=== PATIENT | female | born 1955 | race Caucasian/White ===

== ENCOUNTER 2017-04-08 08:28 | Day surgery (SDC) | payer OTHER ==
[2017-04-04 15:18] VITALS: BMI 37.7
[~2017-04-08 08:28] MED LIST: LACTATED RINGERS 1,000 ML IV SCH
[2017-04-08 08:53] VITALS: TEMP 98.6
[2017-04-08 08:57] LABS: Glucose,Whole Blood 106 mg/dL (75-99)
[2017-04-08] MEDS ORDERED: LIDOCAINE 1% INJ 10MG/ML (20 ML MDV) ONE (09:01)
[2017-04-08] MEDS ORDERED: PROPOFOL 10 MG/ML 20 ML VIAL IV ONE (09:01)
--- NOTE | 2017-04-08 09:13 | P.GSHP ---
History of Present Illness H&P Date: 04/08/17 Chief Complaint: Anemia, GI bleed This a 8-year-old female who's had issues with anemia and GI bleed. She presents today for colonoscopy. Past Medical History Past Medical History: Hypertension Additional Past Medical History / Comment(s): states low HGB History of Any Multi-Drug Resistant Organisms: None Reported Past Surgical History: Bariatric Surgery, Section, Hernia Repair, Hysterectomy, Orthopedic Surgery Additional Past Surgical History / Comment(s): ROU-N-Y, RT CARPAL TUNNEL, PANNICULECTOMY Past Anesthesia/Blood Transfusion Reactions: Postoperative Nausea & Vomiting ( PONV) Smoking Status: Never smoker - Past Family History Daughter(s) Family Medical History: Deep Vein Thrombosis (DVT) Additional Family Medical History / Comment(s): R/T CONTROL PILL Medications and Allergies Home Medications Medication Instructions Recorded Confirmed Type Diclofenac 1 tab PO BID 04/04/17 04/08/17 History Ergocalciferol [Vitamin D2] 50,000 unit PO FR 04/04/17 04/08/17 History Ferocon 1 tab PO QAM 04/04/17 04/08/17 History Lisinopril [Zestril] 10 mg PO DAILY 04/04/17 04/08/17 History Vitamin B Complex 1 each PO DAILY 04/04/17 04/08/17 History buPROPion XL [Wellbutrin XL] 150 mg PO BID 04/04/17 04/08/17 History Primidone [Mysoline] 25 mg PO DAILY PRN 04/08/17 04/08/17 History metFORMIN HCL [Glucophage Xr] 500 mg PO DAILY 04/08/17 04/08/17 History Allergies Allergy/AdvReac Type Severity Reaction Status Date / Time No Known Allergies Allergy Verified 04/08/17 08:43 Surgical - Exam Vital Signs Temp Pulse Resp BP Pulse Ox 98.6 F 82 16 124/78 94 L 04/08/17 08:51 04/08/17 08:51 04/08/17 08:51 04/08/17 08:51 04/08/17 08:51 - General well developed, no distress - Eyes PERRL - ENT normal pinna - Neck no masses - Respiratory normal expansion - Cardiovascular Rhythm: regular - Abdomen Abdomen: soft, non tender Results - Labs Abnormal Lab Results - Last 24 Hours (Table) 04/08/17 Range/Units 08:50 POC Glucose (mg/dL) 106 H (75-99) mg/dL Assessment and Plan Plan: GI bleed, anemia. We'll perform colonoscopy.
--- NOTE | 2017-04-08 09:30 | P.OP ---
Date of Procedure: 04/08/17 Preoperative Diagnosis: GI bleed Anemia Postoperative Diagnosis: Mild internal and external hemorrhoids Procedure(s) Performed: Colonoscopy Implants: Anesthesia: MAC Surgeon: Jonny Guevara Pathology: none sent Condition: stable Disposition: PACU Indications for Procedure: Operative Findings: Description of Procedure: Patient's placed on the endoscopy table in the lateral position. She received IV sedation. Digital rectal exam was performed which revealed internal and external hemorrhoids. Flexible colonoscope was then placed patient anus passed throughout the entire colon. Ileocecal valve was visualized. The cecum, ascending and transverse colon appeared normal. The descending and sigmoid colon appeared normal. The scope was then brought back into the rectum this appeared normal. Scope was withdrawn through the anus and internal and external hemorrhoids were noted. Scope was withdrawn for patient.
[2017-04-08 10:05] VITALS: BP 153/89; PULSE 71; RESP 16
== END 2017-04-08 10:09 | disposition home or self-care (01) ==
LOC: ORWHC2ENDO 08:28
PROVIDERS: ATTEND Surgery
DX: K64.8 Other hemorrhoids (principal); K64.4 Residual hemorrhoidal skin tags; K92.2 Gastrointestinal hemorrhage, unspecified; D64.9 Anemia, unspecified; I10 Essential (primary) hypertension; Z98.84 Bariatric surgery status; G25.0 Essential tremor; Z79.1 Long term (current) use of non-steroidal anti-inflammatories (NSAID); Z79.899 Other long term (current) drug therapy; Z88.8 Allergy status to other drugs, medicaments and biological substances
CPT/HCPCS: 45378; J2001; J2704

== ENCOUNTER → 2017-12-31 | Outpatient (CLI) | payer OTHER ==
--- NOTE | 2018-01-20 14:04 | MM ---
Reason for exam: screening (asymptomatic). Last mammogram was performed 4 years and 6 months ago. History: Reductions of both breasts, 2006. Physical Findings: A clinical breast exam by your physician is recommended on an annual basis and results should be correlated with mammographic findings. MG Screening Mammo w CAD Bilateral CC and MLO view(s) were taken. Prior study comparison: June 21, 2013, mammogram, performed at [facility]. May 10, 2011, mammogram, performed at [facility]. There are scattered fibroglandular densities. Benign appearing bilateral calcifications. No suspicious abnormality. No significant changes when compared with prior studies. ASSESSMENT: Benign, BI-RAD 2 RECOMMENDATION: Routine screening mammogram of both breasts in 1 year.
== END | disposition home or self-care (01) ==
LOC: RADMAMWWP 07:56
PROVIDERS: ATTEND Family Medicine
DX: Z12.31 Encounter for screening mammogram for malignant neoplasm of breast (principal)
CPT/HCPCS: 77067

== ENCOUNTER 2019-07-01 08:22 | Emergency (ER) | payer OTHER, BC ==
[2019-07-01 08:35] VITALS: TEMP 97.8
[2019-07-01] MEDS ORDERED: SODIUM CHLORIDE 0.9% 1,000 ML IV STA (09:25)
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
[2019-07-01 10:17] LABS: Basophils # (A) 0.2 k/uL (0-0.2); Basophils % (A) 2 %; Eosinophils # (A) 0.1 k/uL (0-0.7); Eosinophils % (A) 1 %; HGB 13.5 gm/dL (11.4-16.0); Lymphocytes # (A) 0.8 k/uL (1.0-4.8); Lymphocytes % (A) 7 %; MCH 28.5 pg (25.0-35.0); MCHC 32.1 g/dL (31.0-37.0); MCV 88.8 fL (80.0-100.0); Monocytes # (A) 0.5 k/uL (0-1.0); Monocytes % (A) 5 %; Neutrophils # (A) 9.1 k/uL (1.3-7.7); Neutrophils % (A) 84 %; Platelet Count 371 k/uL (150-450); RBC 4.73 m/uL (3.80-5.40); RDW 13.1 % (11.5-15.5); WBC 10.8 k/uL (3.8-10.6)
[2019-07-01 10:25] LABS: INR 0.9 (<1.2); Partial Thromboplastin Time 22.8 sec (22.0-30.0); Prothrombin Time 10.2 sec (9.0-12.0)
[2019-07-01 10:38] LABS: ALT 32 U/L (9-52); AST 33 U/L (14-36); African American GFR (CKD) >90 (>60 ml/min/1.73 sqM); Albumin 4.3 g/dL (3.5-5.0); Alcohol <10 mg/dL; Alkaline Phosphatase 91 U/L (38-126); Anion Gap 10 mmol/L; Blood Urea Nitrogen 15 mg/dL (7-17); Calcium 9.7 mg/dL (8.4-10.2); Carbon Dioxide 25 mmol/L (22-30); Chloride 106 mmol/L (98-107); Creatine Kinase 45 U/L (30-135); Glucose 175 mg/dL (74-99); Potassium 4.6 mmol/L (3.5-5.1); Sodium 141 mmol/L (137-145); Total Bilirubin 0.5 mg/dL (0.2-1.3); Total Protein 7.3 g/dL (6.3-8.2)
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
--- NOTE | 2019-07-01 11:00 | XR ---
EXAMINATION TYPE: XR wrist complete RT DATE OF EXAM: 07/01/2019 CLINICAL HISTORY: Trauma injury with pain. TECHNIQUE: Frontal, lateral and oblique images of the right hand and wrist are obtained. Additional fourth scaphoid view right wrist. COMPARISON: None FINDINGS: Seen best on oblique and scaphoid projection there is acute nondisplaced intra-articular fr acture through distal radial metaphysis radial aspect. The distal ulna intact. Mild narrowing and spu rring base of first metacarpal. Overlying soft tissue unremarkable. Images of right hand show no additional acute fracture or dislocation. Joint spaces show mild to mode rate narrowing throughout the phalanges with relative sparing of the MCP joints. Overlying soft tissu e is unremarkable. IMPRESSION: There is acute nondisplaced oblique intra-articular fracture radial aspect distal radial epiphysis. (Initial encounter closed type posttraumatic fracture)
--- NOTE | 2019-07-01 11:01 | XR ---
EXAMINATION TYPE: XR hand complete RT DATE OF EXAM: 07/01/2019 CLINICAL HISTORY: Right pain after trauma TECHNIQUE: Frontal, lateral and oblique images of the right hand are obtained. COMPARISON: None. FINDINGS: There is a nondisplaced intra-articular transverse fracture of the radial styloid. This vanna ears noncomminuted. There is overlying soft tissue swelling. Cystic change of the scaphoid is likely degenerative. Mild degenerative changes of the first carpometacarpal joint and distal interphalangeal joints with slight narrowing of the radiocarpal joints. Carpal carpal interspaces are maintained. Sl ight negative ulnar variance noted. Old fracture deformity of the middle fifth phalanx. IMPRESSION: Acute nondisplaced intra-articular transversely oriented radial styloid fracture of the r ight wrist.
--- NOTE | 2019-07-01 11:05 | XR ---
Bilateral knees HISTORY: Trauma and pain 3 views of each knee submitted on total of 6 images Bone mineralization is reduced which could limit sensitivity. Osteoarthritic changes with marginal sp urring are present within the knees, joint space loss is significantly reduced at the patellofemoral joints. Alignment is maintained. Soft tissue swelling is present. Suprapatellar joint effusions are s uspected. Atherosclerotic vascular calcifications are present. Possible loose bodies present within t he joints. IMPRESSION: No fracture or dislocation is evident. Osteoarthritis, joint effusions, soft tissue swell ing.
[2019-07-01 11:30] VITALS: RESP 18
[2019-07-01] MEDS ORDERED: KETOROLAC 30 MG/ML 1 ML VIAL IVP STA (13:00)
[2019-07-01 13:19] VITALS: BP 134/81; PULSE 91
== END 2019-07-01 13:30 | disposition home or self-care (01) ==
LOC: EC 08:22
DX: S52.571A Other intraarticular fracture of lower end of right radius, initial encounter for closed fracture (principal); S80.02XA Contusion of left knee, initial encounter; S80.01XA Contusion of right knee, initial encounter; I10 Essential (primary) hypertension; F32.9 Major depressive disorder, single episode, unspecified; Z79.899 Other long term (current) drug therapy; Z79.891 Long term (current) use of opiate analgesic; Z98.84 Bariatric surgery status; Z98.890 Other specified postprocedural states; V57.5XXA Driver of pick-up truck or van injured in collision with fixed or stationary object in traffic accident, initial encounter; Y92.410 Unspecified street and highway as the place of occurrence of the external cause; Y93.89 Activity, other specified; Y99.0 Civilian activity done for income or pay
CPT/HCPCS: 36415; 93005; 86900; 86901; 80053; 82550; 84484; 85025; 85610; 85730; 86850; 80320; 73562; 73110; 73130; 71260; 74177; 29125; 99284; 96374; 96361 ×3; J1885; Q9967

== ENCOUNTER → 2019-08-14 | Outpatient (CLI) | payer BC, OTHER ==
--- NOTE | 2019-08-14 13:43 | MR ---
EXAMINATION TYPE: MR shoulder RT wo con DATE OF EXAM: 08/14/2019 1:07 PM COMPARISON: NONE HISTORY: Rt shoulder pain TECHNIQUE: Multiplanar, multisequence imaging of the right shoulder is performed without contrast. FINDINGS: The study is marred by motion artifact. There is no evidence of an os acromiale. There is only mild hypertrophic change within the right AC j oint. There is a complete tear of the supraspinatus tendon with muscular retraction to the level of the mid midportion of the head of the humerus. The interspace tendon is also attenuated but not completely t orn. The glenoid labrum appears intact. The biceps tendon is normally situated within the biceps tendon groove and inserts normally upon the biceps tendon. IMPRESSION: 1. LIMITED EXAMINATION DUE TO SIGNIFICANT MOTION ARTIFACT. 2. COMPLETE TEAR OF THE SUPRASPINATUS TENDON WITH MUSCULAR RETRACTION TO THE LEVEL OF THE MIDPORTION OF THE HEAD OF THE HUMERUS. 3. COMPLETE TEAR OF THE SUPRASPINATUS TENDON.
--- NOTE | 2019-08-14 14:34 | MR ---
EXAMINATION TYPE: MR cervical spine wo con DATE OF EXAM: 08/14/2019 COMPARISON: None HISTORY: Radiculopathy TECHNIQUE: Multiplanar, multisequence images of the cervical spine were acquired. C2-C3: No evidence for degenerative disc disease. No disc bulge/herniation or protrusion. No Canal stenosis. Foramina are patent bilaterally. C3-C4: No evidence for degenerative disc disease. No disc bulge/herniation or protrusion. No Canal stenosis. Foramina are patent bilaterally. C4-C5: Minimal posterior disc bulge is present, no significant spinal stenosis or foraminal encroachm ent. C5-C6: Small posterior disc bulge is present possibly contacting the anterior cervical cord. No signi ficant central stenosis or foraminal encroachment. C6-C7: Small central posterior disc protrusion, no significant foraminal encroachment or central sten osis. C7-T1: No evidence for degenerative disc disease. No disc bulge/herniation or protrusion. No Canal stenosis. Foramina are patent bilaterally. Cervical segments are intact. There is normal alignment. Cervical spinal cord is of normal signal. Craniovertebral junction relationships are within normal limits. Some mild loss of disc height prese nt C4-5, C5-6. Mild spondylosis is noted. IMPRESSION: Mild degenerative disc disease.
== END | disposition home or self-care (01) ==
LOC: RADMRIMAIN 10:19
PROVIDERS: ATTEND Family Medicine
DX: M50.10 Cervical disc disorder with radiculopathy, unspecified cervical region (principal); M75.121 Complete rotator cuff tear or rupture of right shoulder, not specified as traumatic; S40.011A Contusion of right shoulder, initial encounter
CPT/HCPCS: 72141

== ENCOUNTER 2019-10-21 06:04 | Day surgery (SDC) | payer BC ==
[2019-10-19 16:00] VITALS: BMI 35.5
--- NOTE | 2019-10-20 14:28 | HP ---
HISTORY AND PHYSICAL DATE OF SURGERY: 10/21/2019 Machelle Serrano is a 64-year-old patient seen with progressive right shoulder pain. We discussed options for treatment. She elected to proceed with right shoulder arthroscopy. Consent regarding the procedure was obtained. PAST MEDICAL HISTORY: Hypertension, essential tremors. PAST SURGICAL HISTORY: Carpal tunnel release. DAILY MEDICATIONS: Lisinopril, Tegretol, Wellbutrin. ALLERGIES: None. SOCIAL HISTORY: She denies tobacco use. PHYSICAL EVALUATION OF THE RIGHT SHOULDER: Flexion is 140 degrees, abduction is 130 degrees, external rotation is 15 degrees with pain and weakness. There is tenderness along the anterior lateral acromion and rotator cuff insertion site. Impingement sign is positive at 90 degrees. Drop-arm sign positive. Distal neurovascular exam intact. RADIOGRAPHS OF THE RIGHT SHOULDER: Revealed a type 2 anterior acromion, evidence for acromioclavicular joint osteoarthritis. Right shoulder MRI revealed a retracted rotator cuff tendon tear. IMPRESSION: 1. Right shoulder impingement with retracted rotator cuff tendon tear. 2. Right shoulder acromioclavicular joint osteoarthritis. 3. Hypertension. PLAN: Right shoulder arthroscopy with subacromial decompression, arthroscopic rotator cuff repair, arthroscopic Damián procedure and debridement. MMODL / IJN: [id number] /
[~2019-10-21 06:04] MED LIST changes: +DEXAMETHASONE SOD PHOSPHATE 10 MG/ML 1 ML VIAL IV ONE; +HYDROmorphone 0.5 MG/0.5 ML SYRINGE IVP PRN; +LIDOCAINE 1% 20 ML VIAL (10MG/ML) FOR IV START INTRADERMA PRN; +MIDAZOLAM 2 MG/2 ML VIAL IV PRN; +ONDANSETRON 4 MG/2 ML VIAL IVP ONE; +fentaNYL (PF) 50 MCG/ML 2 ML AMP IVP PRN
[2019-10-21 06:35] LABS: Glucose,Whole Blood 118 mg/dL (75-99)
[2019-10-21] MEDS ORDERED: DEXAMETHASONE SOD PHOSPHATE 4 MG/ML 1 ML VIAL ONE (07:21)
[2019-10-21] MEDS ORDERED: LIDOCAINE 1% INJ 10MG/ML (20 ML MDV) ONE (07:21)
[2019-10-21] MEDS ORDERED: KETOROLAC 30 MG/ML 1 ML VIAL ONE (07:21)
[2019-10-21] MEDS ORDERED: ROPIVACAINE 5 MG/ML 30 ML VIAL ONE (07:21)
[2019-10-21] MEDS ORDERED: fentaNYL (PF) 50 MCG/ML 2 ML AMP ONE (07:21)
[2019-10-21] MEDS ORDERED: MIDAZOLAM 2 MG/2 ML VIAL ONE (07:21)
[2019-10-21] MEDS ORDERED: SUCCINYLCHOLINE CHLORIDE 100 MG/5 ML SYR IV ONE (07:21)
[2019-10-21] MEDS ORDERED: PROPOFOL 10 MG/ML 20 ML VIAL IV ONE (07:21)
[2019-10-21] MEDS ORDERED: LACTATED RINGERS 1,000 ML IV ONE (09:00)
[2019-10-21 09:16] VITALS: TEMP 96.8
--- NOTE | 2019-10-21 09:23 | P.OP ---
Date of Procedure: 10/21/19 Preoperative Diagnosis: Right shoulder impingement Postoperative Diagnosis: 1. Right shoulder rotator cuff tear 2. Right shoulder impingement 3. Right shoulder acromioclavicular joint osteoarthritis 4. Right shoulder partial long head biceps tendon tear 5. Right shoulder superficial labral tear Procedure(s) Performed: 1. Right shoulder arthroscopic rotator cuff repair 2. Right shoulder arthroscopic subacromial decompression 3. Right shoulder arthroscopic Damián procedure 4. Right shoulder arthroscopic biceps tenotomy 5. Right shoulder arthroscopic debridement labral tear Implants: 5Arthrex swivel lock anchors Anesthesia: GETA, regional (Interscalene block) Surgeon: Zhen Watt Bottom Steep Tender #1: Corey Chisholm Estimated Blood Loss (ml): 7 Pathology: none sent Condition: stable Disposition: PACU Indications for Procedure: 64-year-old patient seen with progressive right shoulder pain. After treatment options were discussed with her, she elected to proceed with arthroscopy. Operative Findings: see description of procedure Description of Procedure: Patient underwent an interscalene block by department of anesthesia. The patient was then taken to the operative suite. The patient underwent a general anesthetic by the department of anesthesia. The patient was placed into a lateral position and secured. There was appropriate padding of the bony prominence. Right shoulder was then prepped and draped in normal sterile orthopedic fashion. We placed the extremity in 10 pounds of longitudinal traction. A posterior incision was now made for a posterior working portal site. The trocar and cannula were inserted into the glenohumeral joint. Arthroscopy was initiated. Spinal needle was now inserted anteriorly, to ascertain the anterior working portal site. An incision was now made in that area, a trocar was inserted followed by a probe. There was superficial tearing of the anterior labrum. There was an obvious rotator cuff tear clearly visualized from the glenohumeral side. There was some hyperemia and partial tearing long head biceps tendon. I performed an arthroscopic biceps tenotomy. I debrided the superficial labral tear down to stable tissue. The residual labrum was again probed and found to be stable. Instruments were now removed from glenohumeral joint. Utilizing the posterior working portal site, the trocar and cannula were inserted into the subacromial space. Arthroscopy initiated. I made an incision 2 fingerbreadths lateral to the acromion. I introduced my trocar followed by my ArthroCare ablator. I now began ablating thick subacromial bursal tissue, which exposed the undersurface of the anterior acromion. There was diminished subacromial space. There was a very prominent anterior acromion. A motorized bur was introduced and a subacromial decompression was performed. I also excised some osteophytes off the inferior aspect of the distal clavicle. The AC joint was visualized and noted to be fairly arthritic. The motorized bur was introduced in the anterior portal site and a Damián procedure was performed without difficulty, decompressing the AC joint nicely. I turned my attention to the rotator cuff. There was a 2.53 cm rotator cuff tear. I debrided the margins getting down to stable tendon tissue. I introduced my motorized bur and abraded the footprint area, getting some petechial bleeding. I now made an accessory portal site off the lateral aspect of the acromion. I punched 2 holes medial for medial row fixation with the assistance of Johnny BASILIO carefully tapping the punch with a mallet as I held the punch and the camera. I now introduced both anchors into the pre-punched holes and Johnny BASILIO tapped them with the mallet as I held anchors and the camera. Johnny BASILIO now screwed the anchors in place a while I held the anchor guide and camera. All 8 limbs of suture were now passed through good bites of rotator cuff tendon. I now punched 2 holes for lateral row fixation again I held the punch and camera while Johnny BASILIO used a mallet to tap in the punch. We now passed sutures through both anchors and individually I introduced the anchors into the pre-pu nch holes I held the anchor guide in position with one hand holding the camera with the other hand while Johnny BASILIO tensioned the sutures and screwed in the anchors one at a time. All residual suture limbs were now clipped. I noted a residual central dog ear. I now passed 2 suture lengths and then deployed one additional anchor centrally which compressed that residual central dog ear. The repair was probed and found to be stable. We had good compression of the tendon along the entire footprint. I injected 1 mL Renyte intra-articular. Instruments now removed from the portal sites. All portal sites were approximated with nylon suture. Sterile dressings were applied followed by a shoulder immobilizer. Corey BASILIO assisted in this complex case. The patient was awakened, transferred to a bed, and taken to recovery in stable condition.
[2019-10-21 11:16] VITALS: BP 121/82; PULSE 92; RESP 18
--- NOTE | 2019-10-21 21:21 | P.ANPRN ---
Procedure Note - Anesthesia - Nerve Block Performed Right Interscalene Single Time Out Performed: Yes Date of Procedure: 10/21/19 Procedure Start Time: 06:54 Procedure Stop Time: 07:00 Indication: Acute Post-Operative Pain, Requested by Surgeon Sedation Type: Sedate with meaningful contact maintained Preparation: Sterile Prep Position: Supine Needle Types: Pajunk Needle Gauge: 21 Ultrasound used to visualize needle placement: Yes Ultrasound used to observe medication spread: Yes Blood Aspirated: No Pain Paresthesia on Injection Noted: No Resistance on Injection: Normal Image Stored and Saved: Yes Events: Uneventful and Well Tolerated (ropi .5% 30cc plus dexamethasone 4mg)
== END 2019-10-21 11:55 | disposition home or self-care (01) ==
LOC: OR 06:04
PROVIDERS: ATTEND Orthopaedic Surgery
DX: M75.101 Unspecified rotator cuff tear or rupture of right shoulder, not specified as traumatic (principal); M75.41 Impingement syndrome of right shoulder; M19.011 Primary osteoarthritis, right shoulder; S46.111A Strain of muscle, fascia and tendon of long head of biceps, right arm, initial encounter; S43.431A Superior glenoid labrum lesion of right shoulder, initial encounter; X58.XXXA Exposure to other specified factors, initial encounter; M25.711 Osteophyte, right shoulder; I10 Essential (primary) hypertension; G25.0 Essential tremor; Z98.84 Bariatric surgery status; Z79.899 Other long term (current) drug therapy; Z79.84 Long term (current) use of oral hypoglycemic drugs
CPT/HCPCS: 64415; 76942; 29826; 29827; 29824; C1713 ×4; Q4212; J2250; J1100 ×2; J0690; J2405; J2001; J3010; J1885; J2795; J0330; J2704

== ENCOUNTER 2020-03-20 08:29 | Day surgery (SDC) | payer BC ==
[2020-03-17 08:19] VITALS: BMI 35.6
--- NOTE | 2020-03-19 11:27 | HP ---
HISTORY AND PHYSICAL DATE OF SURGERY: 03/20/2020 HISTORY OF PRESENT ILLNESS: Machelle Serrano is a 65-year-old patient seen with right shoulder adhesive capsulitis. We discussed options. She elected to proceed with manipulation under anesthesia, right shoulder with steroid injection. Consent was obtained. PAST MEDICAL HISTORY: Depression, hypertension. PAST SURGICAL HISTORY: Right shoulder arthroscopy, carpal tunnel release. DAILY MEDICATIONS: Lisinopril, Tegretol, Wellbutrin, Zoloft. ALLERGIES: None. SOCIAL HISTORY: She denies tobacco use. PHYSICAL EXAMINATION: Evaluation of the right shoulder, previous arthroscopic portal sites are well healed. Flexion 80 degrees, abduction 70 degrees. External rotation 20 degrees with some weakness. Distal neurovascular exam is intact. RADIOGRAPHS: Right shoulder revealed a stable conversion to a type 1 anterior acromion. IMPRESSION: 1. Right shoulder adhesive capsulitis. 2. History of right shoulder arthroscopy. 3. Hypertension. 4. Depression. PLAN: Manipulation under anesthesia, right shoulder with steroid injection. MMODL / IJN: [id number] /
[~2020-03-20 08:29] MED LIST changes: -DEXAMETHASONE SOD PHOSPHATE 10 MG/ML 1 ML VIAL IV ONE; +LIDOCAINE 1% (10MG/ML) FOR IV START INTRADERMA PRN; -LIDOCAINE 1% 20 ML VIAL (10MG/ML) FOR IV START INTRADERMA PRN; -MIDAZOLAM 2 MG/2 ML VIAL IV PRN; -ONDANSETRON 4 MG/2 ML VIAL IVP ONE; +Pre Op ABX Message 1 EACH MISC MISCELLANE ONE; -fentaNYL (PF) 50 MCG/ML 2 ML AMP IVP PRN
[2020-03-20 09:08] VITALS: TEMP 98
[2020-03-20] MEDS ORDERED: ONDANSETRON 4 MG/2 ML VIAL ONE (09:21)
[2020-03-20 09:34] LABS: Glucose,Whole Blood 96 mg/dL (75-99)
[2020-03-20] MEDS ORDERED: MIDAZOLAM 2 MG/2 ML VIAL IV ONE (09:34)
[2020-03-20] MEDS ORDERED: ONDANSETRON 4 MG/2 ML VIAL IVP ONE (09:40)
[2020-03-20] MEDS ORDERED: PROPOFOL 10 MG/ML 20 ML VIAL IV ONE (09:52)
[2020-03-20] MEDS ORDERED: BUPIVACAINE (PF) 0.25% 30 ML VIAL INTRAARTIC ONE (10:00)
[2020-03-20] MEDS ORDERED: methylPREDNISolone ACETATE 80 MG/ML 1 ML VIAL INTRABURSA ONE (10:00)
--- NOTE | 2020-03-20 10:00 | P.ANPRN ---
Procedure Note - Anesthesia - Nerve Block Performed Right Interscalene Single Time Out Performed: Yes Date of Procedure: 03/20/20 Procedure Start Time: 08:54 Procedure Stop Time: 09:01 Location of Patient: PreOp Indication: Acute Post-Operative Pain, Requested by Surgeon Specifically requested for management of pain by DrGissel: Zhen Watt Sedation Type: Sedate with meaningful contact maintained Preparation: Sterile Prep, Sterile Dressing Position: Sitting Catheter: None Needle Types: On-Q Needle Gauge: 21 Ultrasound used to visualize needle placement: Yes Ultrasound used to observe medication spread: Yes Injectate: 0.5% Ropivacaine (see comment for volume) (20 ml + decadron 4 mg) Blood Aspirated: No Pain Paresthesia on Injection Noted: No Resistance on Injection: Normal Image Stored and Saved: Yes Events: Uneventful and Well Tolerated
--- NOTE | 2020-03-20 10:07 | P.OP ---
Date of Procedure: 03/20/20 Preoperative Diagnosis: Right shoulder adhesive capsulitis Postoperative Diagnosis: Right shoulder adhesive capsulitis Procedure(s) Performed: Manipulation under anesthesia right shoulder with steroid injection Anesthesia: MAC, regional (Interscalene block) Surgeon: Zhen Watt Estimated Blood Loss (ml): 0 Pathology: none sent Condition: stable Disposition: PACU Indications for Procedure: 65-year-old patient seen with right shoulder adhesive capsulitis. After we had treatment options discussed, she elected to proceed with manipulation under anesthesia with steroid injection. Operative Findings: See description of procedure Description of Procedure: Patient was taken to a monitored anesthesia area after having undergone a interscalene block by the department of anesthesia for postoperative pain management. The patient underwent IV sedation by the department of anesthesia. Once sufficient anesthesia was noted a manipulation of the right shoulder was performed achieving near full range of motion with audible tearing of the adhesions. The anterior aspect of the right shoulder was now prepped and draped in the normal sterile orthopedic fashion and a solution of 1 mL Depo-Medrol and 3 mL quarter percent plain Marcaine were injected into the glenohumeral joint. A sterile Band-Aid was applied. The patient was now awakened having tolerated the procedure well.
[2020-03-20 10:23] LABS: Glucose,Whole Blood 95 mg/dL (75-99)
[2020-03-20 10:46] VITALS: RESP 16
[2020-03-20 11:15] VITALS: BP 123/73; PULSE 77
== END 2020-03-20 11:25 | disposition home or self-care (01) ==
LOC: OR 08:29
PROVIDERS: ATTEND Orthopaedic Surgery
DX: M75.01 Adhesive capsulitis of right shoulder (principal); I10 Essential (primary) hypertension; E11.9 Type 2 diabetes mellitus without complications; F32.9 Major depressive disorder, single episode, unspecified; Z79.84 Long term (current) use of oral hypoglycemic drugs; Z79.899 Other long term (current) drug therapy; Z98.890 Other specified postprocedural states
CPT/HCPCS: 23700; 64415; 76942; J2250; J1040; J2405; J2704

== ENCOUNTER → 2021-12-04 | Outpatient (CLI) | payer OTHER ==
--- NOTE | 2021-12-05 11:00 | MM ---
Reason for exam: screening (asymptomatic). Last mammogram was performed 3 years and 11 months ago. History: Reductions of both breasts, 2006. Physical Findings: A clinical breast exam by your physician is recommended on an annual basis and results should be correlated with mammographic findings. MG Screening Mammo w CAD Bilateral CC, MLO, and XCCL view(s) were taken. Prior study comparison: December 31, 2017, bilateral MG screening mammo w CAD. There are scattered fibroglandular densities. Benign vascular calcifications. Grouped heterogeneous microcalcifications posterior central left breast were present previously but may be slightly increased. ASSESSMENT: Incomplete: need additional imaging evaluation, BI-RAD 0 RECOMMENDATION: Special view mammogram of the left breast. (magnification) [facility] will attempt to contact patient to return for supplemental views.
== END | disposition home or self-care (01) ==
LOC: RADMAMWWP 07:01
PROVIDERS: ATTEND Family Medicine
DX: Z12.31 Encounter for screening mammogram for malignant neoplasm of breast (principal)
CPT/HCPCS: 77067

== ENCOUNTER → 2021-12-07 | Outpatient (CLI) | payer OTHER ==
--- NOTE | 2021-12-07 08:43 | MM ---
Reason for exam: additional evaluation requested from abnormal screening. Last mammogram was performed less than 1 month ago. History: Reductions of both breasts, 2006. Physical Findings: A clinical breast exam by your physician is recommended on an annual basis and results should be correlated with mammographic findings. MG Work Up Mamm w CAD LT CC with magnification and ML view(s) were taken of the left breast. Prior study comparison: December 04, 2021, bilateral MG screening mammo w CAD. December 31, 2017, bilateral MG screening mammo w CAD. There are scattered fibroglandular densities. Finding: There are grouped/clustered, coarse calcifications in the lower outer quadrant, posterior position of the left breast, suspect fat necrosis, stable from 2018, prior reduction. Results were given to the patient verbally at the time of the exam. ASSESSMENT: Benign, BI-RAD 2 RECOMMENDATION: Return to routine screening mammogram schedule for both breasts.
== END | disposition home or self-care (01) ==
LOC: RADMAMWWP 06:55
PROVIDERS: ATTEND Family Medicine
DX: R92.8 Other abnormal and inconclusive findings on diagnostic imaging of breast (principal)
CPT/HCPCS: 77065

== ENCOUNTER → 2022-02-20 | Outpatient (CLI) | payer OTHER ==
--- NOTE | 2022-02-21 12:34 | NM ---
EXAMINATION TYPE: NM bone scan whole body DATE OF EXAM: 02/20/2022 COMPARISON: NONE HISTORY: Pain Delayed whole-body scanning was performed following the injection of 25.2 mCi Tc 99m MDP. Images acq uired 3.5 hours post injection. FINDINGS: Intense abnormal uptake involving the patella bilaterally. Mild uptake involving the ankles, feet and first MTP bilaterally most typical of arthritic change. Mild uptake involving the shoulders bilaterally most typical of arthritic change. Mild intensity uptake throughout the thoracic and lower lumbar spine likely degenerative. No suspicious uptake overlying the coccyx. IMPRESSION: 1. Intense abnormal uptake involving the patella bilaterally nonspecific but likely post arthritic co rrelate with x-ray as clinically warranted. 2. No definite suspicious uptake overlying the coccyx.
== END | disposition home or self-care (01) ==
LOC: RADNMMAIN 10:10
PROVIDERS: ATTEND Family Medicine
DX: R93.7 Abnormal findings on diagnostic imaging of other parts of musculoskeletal system (principal)
CPT/HCPCS: 78306; A9503

== ENCOUNTER 2022-04-13 11:11 | Observation (INO) | payer OTHER ==
[2022-04-13] MEDS: SODIUM CHLORIDE 0.9% 1,000 ML IV STA ×2 (11:48→12:57)
[2022-04-13 11:59] LABS: Glucose,Whole Blood 210 mg/dL (70-110)
[2022-04-13 12:25] LABS: Basophils # (A) 0.1 k/uL (0-0.2); Basophils % (A) 1 %; Eosinophils # (A) 0.1 k/uL (0-0.7); Eosinophils % (A) 1 %; HCT 44.8 % (34.0-46.0); HGB 14.3 gm/dL (11.4-16.0); Lymphocytes # (A) 1.2 k/uL (1.0-4.8); Lymphocytes % (A) 15 %; MCHC 31.8 g/dL (31.0-37.0); MCV 88.2 fL (80.0-100.0); Mean Platelet Volume 7.8; Monocytes # (A) 0.7 k/uL (0-1.0); Monocytes % (A) 8 %; Neutrophils % (A) 73 %; Platelet Count 309 k/uL (150-450); RBC 5.09 m/uL (3.80-5.40); WBC 8.2 k/uL (3.8-10.6)
[2022-04-13 12:34] LABS: Albumin 4.1 g/dL (3.5-5.0); Calcium 9.5 mg/dL (8.4-10.2); Magnesium 2.2 mg/dL (1.6-2.3); Potassium 4.2 mmol/L (3.5-5.1); Total Bilirubin 0.4 mg/dL (0.2-1.3); Total Protein 7.4 g/dL (6.3-8.2)
--- NOTE | 2022-04-13 12:49 | ED ---
General Adult HPI - General Chief complaint: Nausea/Vomiting/Diarrhea Stated complaint: Vomiting Time Seen by Provider: 04/13/22 11:50 Source: patient, RN notes reviewed, old records reviewed Mode of arrival: ambulatory Limitations: no limitations - History of Present Illness Initial comments: 67 -year-old female presenting for evaluation of dizziness, nausea vomiting. Patient had a gastrointestinal illness over the past several days with significant vomiting and diarrhea. She felt better today and had taken her antihypertensive medication which includes lisinopril 10 mg. She began feeling diaphoretic and lightheaded. Upon arrival she has a blood pressure 50 over palp. She denies chest pain. Denies abdominal pain - Related Data Home Medications Medication Instructions Recorded Confirmed lisinopriL [Zestril] 10 mg PO DAILY 04/04/17 04/13/22 Cetirizine HCl [Zyrtec] 10 mg PO DAILY 07/01/19 04/13/22 Diclofenac Sodium [Voltaren] 75 mg PO BID 07/01/19 04/13/22 Sertraline [Zoloft] 100 mg PO HS 07/01/19 04/13/22 buPROPion HCL [Wellbutrin SR] 150 mg PO BID 07/01/19 04/13/22 metFORMIN HCL [Glucophage Xr] 500 mg PO HS 10/19/19 04/13/22 Ergocalciferol [Vitamin D2 (1250 1,250 mcg PO SA 04/13/22 04/13/22 Mcg = 43143 Iu)] Ferrous Sulfate [Feosol] 325 mg PO DAILY 04/13/22 04/13/22 Supartz Fx 25/2.5ml Injection 25 mg INTRAARTIC TH 04/13/22 04/13/22 traMADol HCL 50 mg PO TID PRN 04/13/22 04/13/22 Allergies Allergy/AdvReac Type Severity Reaction Status Date / Time No Known Allergies Allergy Verified 04/13/22 13:53 Review of Systems ROS Statement: Those systems with pertinent positive or pertinent negative responses have been documented in the HPI. ROS Other: All systems not noted in ROS Statement are negative. Past Medical History Past Medical History: Diabetes Mellitus, Hypertension Additional Past Medical History / Comment(s): states low HGB History of Any Multi-Drug Resistant Organisms: None Reported Past Surgical History: Bariatric Surgery, Section, Hernia Repair, Hysterectomy, Orthopedic Surgery Additional Past Surgical History / Comment(s): ROU-N-Y, RT CARPAL TUNNEL, PANNICULECTOMY, RT SHOULDER SX 09/2019 Past Anesthesia/Blood Transfusion Reactions: Postoperative Nausea & Vomiting (PONV) Past Psychological History: Depression Smoking Status: Never smoker Past Alcohol Use History: None Reported Past Drug Use History: None Reported - Past Family History Daughter(s) Family Medical History: Deep Vein Thrombosis (DVT) Additional Family Medical History / Comment(s): R/T CONTROL PILL General Exam Limitations: no limitations General appearance: lethargic, in distress Head exam: Present: atraumatic, normocephalic Eye exam: Present: normal appearance, PERRL ENT exam: Present: mucous membranes dry Neck exam: Present: normal inspection. Absent: tenderness, meningismus Respiratory exam: Present: normal lung sounds bilaterally. Absent: respiratory distress, wheezes Cardiovascular Exam: Present: regular rate, normal rhythm GI/Abdominal exam: Present: soft. Absent: distended, tenderness, guarding Extremities exam: Present: normal capillary refill. Absent: calf tenderness Neurological exam: Present: alert. Absent: motor sensory deficit Skin exam: Present: warm, diaphoretic Course Vital Signs 04/13/22 04/13/22 04/13/22 11:37 11:47 12:08 Temperature 97.4 F L Pulse Rate 60 52 L 50 L Respiratory 24 18 18 Rate Blood Pressure 55/32 96/58 O2 Sat by Pulse 97 98 96 Oximetry 04/13/22 04/13/22 12:58 13:49 Temperature Pulse Rate 62 62 Respiratory 18 18 Rate Blood Pressure 100/62 127/68 O2 Sat by Pulse 97 98 Oximetry EKG Findings - EKG Comments: EKG Findings:: Sinus bradycardia low voltage, rate of 56, TN interval 160, QRS duration 106, QTC [address] segment elevation. Medical Decision Making - Medical Decision Making 67-year-old female presenting with nausea vomiting, lightheadedness. Patient initially found to be quite hypotensive. She had been vomiting with diarrhea over the past 3 days this the symptoms had improved but the patient took her blood pressure medications morning likely resulting in hypotension. Patient was given 2 L bolus in the emergency department with improvement in blood pressure. She has a normal white blood cell count without leukocytosis, hemoglobin 14.3, mild HPI with a creatinine of 1.25 per lactic is elevated at 2.5. Urinalysis is pending. Chest x-ray is clear. Patient will be admitted for close monitoring, and continued IV hydration. Case discussed with [facility] hospitalists. - Lab Data Result diagrams: 04/13/22 11:50 04/13/22 11:50 Lab Results 04/13/22 04/13/22 04/13/22 Range/Units 11:50 11:50 11:50 WBC 8.2 (3.8-10.6) k/uL RBC 5.09 (3.80-5.40) m/uL Hgb 14.3 (11.4-16.0) gm/dL Hct 44.8 (34.0-46.0) % MCV 88.2 (80.0-100.0) fL MCH 28.0 (25.0-35.0) pg MCHC 31.8 (31.0-37.0) g/dL RDW 13.0 (11.5-15.5) % Plt Count 309 (150-450) k/uL MPV 7.8 Neutrophils % 73 % Lymphocytes % 15 % Monocytes % 8 % Eosinophils % 1 % Basophils % 1 % Neutrophils # 6.0 (1.3-7.7) k/uL Lymphocytes # 1.2 (1.0-4.8) k/uL Monocytes # 0.7 (0-1.0) k/uL Eosinophils # 0.1 (0-0.7) k/uL Basophils # 0.1 (0-0.2) k/uL PT 10.4 (9.0-12.0) sec INR 0.9 (<1.2) APTT 20.1 L (22.0-30.0) sec Sodium 136 L (137-145) mmol/L Potassium 4.2 (3.5-5.1) mmol/L Chloride 99 (98-107) mmol/L Carbon Dioxide 22 (22-30) mmol/L Anion Gap 15 mmol/L BUN 25 H (7-17) mg/dL Creatinine 1.25 H (0.52-1.04) mg/dL Est GFR (CKD-EPI)AfAm 52 (>60 ml/min/1.73 sqM) Est GFR (CKD-EPI)NonAf 45 (>60 ml/min/1.73 sqM) Glucose 209 H (74-99) mg/dL POC Glucose (mg/dL) (70-110) mg/dL POC Glu Health Care Marketing Manager ID Plasma Lactic Acid Agustín (0.7-2.0) mmol/L Calcium 9.5 (8.4-10.2) mg/dL Magnesium 2.2 (1.6-2.3) mg/dL Total Bilirubin 0.4 (0.2-1.3) mg/dL AST 51 H (14-36) U/L ALT 40 H (4-34) U/L Alkaline Phosphatase 154 H (38-126) U/L Troponin I (0.000-0.034) ng/mL Total Protein 7.4 (6.3-8.2) g/dL Albumin 4.1 (3.5-5.0) g/dL 04/13/22 04/13/22 04/13/22 Range/Units 11:50 11:50 11:57 WBC (3.8-10.6) k/uL RBC (3.80-5.40) m/uL Hgb (11.4-16.0) gm/dL Hct (34.0-46.0) % MCV (80.0-100.0) fL MCH (25.0-35.0) pg MCHC (31.0-37.0) g/dL RDW (11.5-15.5) % Plt Count (150-450) k/uL MPV Neutrophils % % Lymphocytes % % Monocytes % % Eosinophils % % Basophils % % Neutrophils # (1.3-7.7) k/uL Lymphocytes # (1.0-4.8) k/uL Monocytes # (0-1.0) k/uL Eosinophils # (0-0.7) k/uL Basophils # (0-0.2) k/uL PT (9.0-12.0) sec INR (<1.2) APTT (22.0-30.0) sec Sodium (137-145) mmol/L Potassium (3.5-5.1) mmol/L Chloride (98-107) mmol/L Carbon Dioxide (22-30) mmol/L Anion Gap mmol/L BUN (7-17) mg/dL Creatinine (0.52-1.04) mg/dL Est GFR (CKD-EPI)AfAm (>60 ml/min/1.73 sqM) Est GFR (CKD-EPI)NonAf (>60 ml/min/1.73 sqM) Glucose (74-99) mg/dL POC Glucose (mg/dL) 210 H (70-110) mg/dL POC Glu Health Care Marketing Manager ID Harry Urban Plasma Lactic Acid Agustín 2.5 H* (0.7-2.0) mmol/L Calcium (8.4-10.2) mg/dL Magnesium (1.6-2.3) mg/dL Total Bilirubin (0.2-1.3) mg/dL AST (14-36) U/L ALT (4-34) U/L Alkaline Phosphatase (38-126) U/L Troponin I <0.012 (0.000-0.034) ng/mL Total Protein (6.3-8.2) g/dL Albumin (3.5-5.0) g/dL Disposition Clinical Impression: Dehydration, Hypotension Disposition: ADMITTED IP TO THIS HOSP Condition: Stable Is patient prescribed a controlled substance at d/c from ED?: No Referrals: Kristin Rock DO [Primary Care Provider] - 1-2 days Time of Disposition: 14:03
[2022-04-13 12:50] LABS: INR 0.9 (<1.2); Prothrombin Time 10.4 sec (9.0-12.0)
[2022-04-13 12:57] LABS: Partial Thromboplastin Time 20.1 sec (22.0-30.0)
--- NOTE | 2022-04-13 13:35 | XR ---
EXAMINATION TYPE: XR chest 1V portable DATE OF EXAM: 04/13/2022 1:21 PM COMPARISON: CT 07/01/2019 TECHNIQUE: XR chest 1V portable Frontal view of the chest. CLINICAL INDICATION:Female, 67 years old with history of weakness; FINDINGS: Lungs/Pleura: There is no evidence of pleural effusion, focal consolidation, or pneumothorax. Pulmonary vascularity: Unremarkable. Heart/mediastinum: Cardiomediastinal silhouette is unremarkable. Musculoskeletal: No acute osseous pathology. IMPRESSION: No acute cardiopulmonary disease/process.
[2022-04-13] MEDS: SODIUM CHLORIDE 0.9% 1,000 ML IV SCH (13:51)
[2022-04-13] MEDS ORDERED: NALOXONE 0.4 MG/ML 1 ML VIAL IV PRN (13:59)
[2022-04-13 14:40] LABS: Appearance,Urine Turbid (Clear); Bacteria,Urine Few /hpf; Bilirubin,Urine 1+ (Negative); Blood,Urine Small (Negative); Color,Urine Yellow; Glucose,Urine (UA) Negative (Negative); Granular Casts,Urine 16 /lpf (0); Hyaline Casts,Urine 47 /lpf (0-2); Ketones,Urine 1+ (Negative); Leukocyte Esterase,Urine Large (Negative); Mucus,Urine Many /hpf; Nitrite,Urine Negative (Negative); PH, Urine 5.5 (5.0-8.0); Protein,Urine 2+ (Negative); RBC,Urine 6 /hpf (0-5); Specific Gravity,Urine 1.019 (1.001-1.035); Squamous Epithelial Cell,Urine 1 /hpf (0-4); WBC,Urine >182 /hpf (0-5)
[2022-04-13 16:40] LABS: Glucose,Whole Blood 145 mg/dL (70-110)
[2022-04-13 20:15] LABS: Glucose,Whole Blood 126 mg/dL (70-110)
[2022-04-13] MEDS ORDERED: ERGOCALCIFEROL 1,250 MCG (50,000 IU) CAPSULE PO SCH (21:00)
[2022-04-13] MEDS: ETODOLAC 400 MG TAB PO SCH (22:18)
[2022-04-13] MEDS: buPROPion SR 150 MG TABLET.ER PO SCH (22:19)
[2022-04-14] MEDS: SODIUM CHLORIDE 0.9% 1,000 ML IV SCH ×3 (00:29→19:18)
[2022-04-14 07:18] LABS: Glucose,Whole Blood 92 mg/dL (70-110)
[2022-04-14] MEDS: metFORMIN 500 MG TAB PO SCH ×2 (08:29→18:49)
[2022-04-14] MEDS: FERROUS SULFATE 325 MG TAB PO SCH (08:43)
[2022-04-14] MEDS: ACETAMINOPHEN TAB 325 MG TAB PO PRN (08:49)
[2022-04-14] MEDS: ETODOLAC 400 MG TAB PO SCH ×2 (08:49→20:10)
[2022-04-14] MEDS: buPROPion SR 150 MG TABLET.ER PO SCH ×2 (08:50→20:10)
[2022-04-14] MEDS: LORATADINE 10 MG TAB PO SCH (08:50)
[2022-04-14 09:17] LABS: Basophils # (A) 0.03 X 10*3/uL (0.00-0.10); Basophils % (A) 0.5 %; Eosinophils % (A) 1.5 %; HCT 34.8 % (37.2-46.3); HGB 10.9 g/dL (12.0-15.0); Immature Grans, Automated 0.3 %; Lymphocytes # (A) 1.33 X 10*3/uL (0.90-5.00); Lymphocytes % (A) 20.1 %; MCH 27.7 pg (27.0-32.0); MCHC 31.3 g/dL (32.0-37.0); MCV 88.3 fL (80.0-97.0); Mean Platelet Volume 10.3 fL (9.5-12.2); Monocytes # (A) 0.76 X 10*3/uL (0.20-1.00); Monocytes % (A) 11.5 %; NRBC Per 100 WBC 0 /100 WBCS (0.0-0.0); Neutrophils # (A) 4.38 X 10*3/uL (1.80-7.70); Neutrophils % (A) 66.1 %; Platelet Count 241 X 10*3/uL (140-440); RBC 3.94 X 10*6/uL (4.10-5.20); RDW 13.3 % (11.5-14.5); WBC 6.62 X 10*3/uL (4.50-10.00)
[2022-04-14 09:36] LABS: African American GFR (CKD) 107.3 (60.0-200.0); Anion Gap 9.5 mmol/L (10.00-18.00); BUN/Creat Ratio 21.57 Ratio (12.00-20.00); Blood Urea Nitrogen 14.3 mg/dL (9.0-27.0); Calcium 8.3 mg/dL (8.7-10.3); Carbon Dioxide 21.1 mmol/L (20.0-27.5); Non-African American GFR(CKD) 92.6 (60.0-200.0); Potassium 3.7 mmol/L (3.5-5.5)
--- NOTE | 2022-04-14 10:16 | P.HPIM ---
History of Present Illness H&P Date: 04/13/22 Chief Complaint: Serial vomiting and diarrhea 67 -year-old female, history of hypertension, diabetes mellitus and depression, presenting for evaluation of dizziness, nausea vomiting. Patient had a gastrointestinal illness over the past several days with significant vomiting and diarrhea. She felt better today and had taken her antihypertensive medication which includes lisinopril 10 mg. She began feeling diaphoretic and lightheaded. Upon arrival she has a blood pressure 50 over palp. She denies chest pain. Denies abdominal pain Patient initially found to be quite hypotensive. She had been vomiting with diarrhea over the past 3 days this the symptoms had improved but the patient took her blood pressure medications morning likely resulting in hypotension. Boby mcknight was given 2 L bolus in the emergency department with improvement in blood pressure. She has a normal white blood cell count without leukocytosis, hemoglobin 14.3, mild YARELY with a creatinine of 1.25 per lactic is elevated at 2.5. Urinalysis is pending. Chest x-ray is clear. Patient will be admitted for close monitoring, and continued IV hydration. Review of Systems REVIEW OF SYSTEMS: CONSTITUTIONAL: No fever, no malaise, no fatigue. HEENT: No recent visual problems or hearing problems. Denied any sore throat. CARDIOVASCULAR: No chest pain, orthopnea, PND, no palpitations, no syncope. PULMONARY: No shortness of breath, no cough, no hemoptysis. GASTROINTESTINAL: No diarrhea, no nausea, no vomiting, no abdominal pain. NEUROLOGICAL: No headaches, no weakness, no numbness. HEMATOLOGICAL: Denies any bleeding or petechiae. GENITOURINARY: Denies any burning micturition, frequency, or urgency. MUSCULOSKELETAL/RHEUMATOLOGICAL: Denies any joint pain, swelling, or any muscle pain. ENDOCRINE: Denies any polyuria or polydipsia. The rest of the 14-point review of systems is negative. Past Medical History Past Medical History: Diabetes Mellitus, Hypertension Additional Past Medical History / Comment(s): states low HGB History of Any Multi-Drug Resistant Organisms: None Reported Past Surgical History: Bariatric Surgery, Section, Hernia Repair, Hysterectomy, Orthopedic Surgery Additional Past Surgical History / Comment(s): ROU-N-Y, RT CARPAL TUNNEL, PANNICULECTOMY, RT SHOULDER SX 09/2019 Past Anesthesia/Blood Transfusion Reactions: Postoperative Nausea & Vomiting (PONV) Past Psychological History: Depression Smoking Status: Never smoker Past Alcohol Use History: None Reported Past Drug Use History: None Reported - Past Family History Daughter(s) Family Medical History: Deep Vein Thrombosis (DVT) Additional Family Medical History / Comment(s): R/T CONTROL PILL Mother Family Medical History: Hypertension Medications and Allergies Home Medications Medication Instructions Recorded Confirmed Type lisinopriL [Zestril] 10 mg PO DAILY 04/04/17 04/13/22 History Cetirizine HCl [Zyrtec] 10 mg PO DAILY 07/01/19 04/13/22 History Diclofenac Sodium [Voltaren] 75 mg PO BID 07/01/19 04/13/22 History Sertraline [Zoloft] 100 mg PO HS 07/01/19 04/13/22 History buPROPion HCL [Wellbutrin SR] 150 mg PO BID 07/01/19 04/13/22 History metFORMIN HCL [Glucophage Xr] 500 mg PO HS 10/19/19 04/13/22 History Ergocalciferol [Vitamin D2 (1250 1,250 mcg PO SA 04/13/22 04/13/22 History Mcg = 42310 Iu)] Ferrous Sulfate [Feosol] 325 mg PO DAILY 04/13/22 04/13/22 History Supartz Fx 25/2.5ml Injection 25 mg INTRAARTIC TH 04/13/22 04/13/22 History traMADol HCL 50 mg PO TID PRN 04/13/22 04/13/22 History Allergies Allergy/AdvReac Type Severity Reaction Status Date / Time No Known Allergies Allergy Verified 04/13/22 13:53 Physical Exam Vitals: Vital Signs Temp Pulse Resp BP Pulse Ox 04/13/22 13:49 62 18 127/68 98 04/13/22 12:58 62 18 100/62 97 04/13/22 12:08 50 L 18 96/58 96 04/13/22 11:47 52 L 18 55/32 98 04/13/22 11:37 97.4 F L 60 24 97 Intake and Output 04/12/22 04/13/22 04/13/22 22:59 06:59 14:59 Other: Weight 95.254 kg PHYSICAL EXAMINATION: GENERAL: The patient is alert and oriented x3, not in any acute distress. Well developed, well nourished. HEENT: Pupils are round and equally reacting to light. EOMI. No scleral icterus. No conjunctival pallor. Normocephalic, atraumatic. No pharyngeal erythema. No thyromegaly. CARDIOVASCULAR: S1 and S2 present. No murmurs, rubs, or gallops. PULMONARY: Chest is clear to auscultation, no wheezing or crackles. ABDOMEN: Soft, nontender, nondistended, normoactive bowel sounds. No palpable organomegaly. MUSCULOSKELETAL: No joint swelling or deformity. EXTREMITIES: No cyanosis, clubbing, or pedal edema. NEUROLOGICAL: Gross neurological examination did not reveal any focal deficits. SKIN: No rashes. Results CBC & Chem 7: 04/14/22 05:33 04/14/22 05:33 Labs: Abnormal Lab Results - Last 24 Hours (Table) 04/13/22 04/13/22 04/13/22 Range/Units 11:50 11:50 11:50 APTT 20.1 L (22.0-30.0) sec Sodium 136 L (137-145) mmol/L BUN 25 H (7-17) mg/dL Creatinine 1.25 H (0.52-1.04) mg/dL Glucose 209 H (74-99) mg/dL POC Glucose (mg/dL) (70-110) mg/dL Plasma Lactic Acid Agustín 2.5 H* (0.7-2.0) mmol/L AST 51 H (14-36) U/L ALT 40 H (4-34) U/L Alkaline Phosphatase 154 H (38-126) U/L 04/13/22 Range/Units 11:57 APTT (22.0-30.0) sec Sodium (137-145) mmol/L BUN (7-17) mg/dL Creatinine (0.52-1.04) mg/dL Glucose (74-99) mg/dL POC Glucose (mg/dL) 210 H (70-110) mg/dL Plasma Lactic Acid Agustín (0.7-2.0) mmol/L AST (14-36) U/L ALT (4-34) U/L Alkaline Phosphatase (38-126) U/L Assessment and Plan Assessment: 1. Intractable nausea vomiting and diarrhea; possible acute gastroenteritis 2. Hypotension; likely hypovolemia related to vomiting and diarrhea 3. Acute renal injury; patient has an elevated B UN/creatinine of 25/1.25 which is above baseline; likely related to dehydration and hypovolemia; patient is placed on IV fluids in form of normal saline at rate of 75 mL an hour; we'll monitor strict LATESHA's and renal function; avoid nephrotoxins and hypotension 4. Transaminitis; likely multifactorial related to intractable vomiting and hypotension; we will monitor liver enzymes closely with plans for further workup if liver enzymes continue to trend up 5. Hypertension; we will hold antihypertensive therapy until blood pressure stable 6. Diabetes mellitus 2; monitor Accu-Cheks before meals and at bedtime with insulin sliding scale; metformin 500 mg daily at bedtime 7. Depression; continue with home dose of Zoloft 100 mg daily at bedtime and Wellbutrin SR 150 mg twice a day DVT prophylaxis; SCDs/subcu heparin CODE STATUS; full code
[2022-04-14 11:43] LABS: Glucose,Whole Blood 129 mg/dL (70-110)
[2022-04-14 16:33] LABS: Glucose,Whole Blood 68 mg/dL (70-110)
--- NOTE | 2022-04-14 17:38 | P.PN ---
Subjective Progress Note Date: 04/14/22 Principal diagnosis: Intractable nausea vomiting and diarrhea Hypotension; likely hypovolemia related to vomiting and diarrhea Acute renal injury Transaminitis UTI 67 -year-old female, history of hypertension, diabetes mellitus and depression, presenting for evaluation of dizziness, nausea vomiting. Patient had a gastrointestinal illness over the past several days with significant vomiting and diarrhea. She felt better today and had taken her antihypertensive medication which includes lisinopril 10 mg. She began feeling diaphoretic and lightheaded. Upon arrival she has a blood pressure 50 over palp. She denies chest pain. Denies abdominal pain Patient initially found to be quite hypotensive. She had been vomiting with diarrhea over the past 3 days this the symptoms had improved but the patient took her blood pressure medications morning likely resulting in hypotension. Patient was given 2 L bolus in the emergency department with improvement in blood pressure. She has a normal white blood cell count without leukocytosis, hemoglobin 14.3, mild YARELY with a creatinine of 1.25 per lactic is elevated at 2.5. Urinalysis is pending. Chest x-ray is clear. Patient will be admitted for close monitoring, and continued IV hydration. Patient has been placed on IV antibiotics in form of Rocephin 1 g IV daily; urine culture is obtained and pending with plans to adjust IV antibiotic therapy once urine culture results are available; continue with IV hydration; continue to monitor renal function and electrolytes Objective - Vital Signs Vital signs: Vital Signs Temp 99.2 F 04/14/22 08:00 Pulse 83 04/14/22 08:00 Resp 17 04/14/22 08:00 BP 106/59 04/14/22 08:00 Pulse Ox 97 04/14/22 08:00 FiO2 Intake & Output 04/13/22 04/14/22 04/14/22 18:59 06:59 18:59 Intake Total 1040 500 Output Total 0 Balance 1040 500 Weight 95.254 kg Intake: Intake, IV Titration 800 Amount Sodium Chloride 0.9% 1, 800 000 ml @ 100 mls/hr IV . Q10H [facility] Rx#:[id number] Oral 240 500 Output: Emesis 0 Other: Voiding Method Toilet # Voids 2 2 # Bowel Movements 1 2 - Exam PHYSICAL EXAMINATION: GENERAL: The patient is alert and oriented x3, not in any acute distress. Well developed, well nourished. HEENT: Pupils are round and equally reacting to light. EOMI. No scleral icterus. No conjunctival pallor. Normocephalic, atraumatic. No pharyngeal erythema. No thyromegaly. CARDIOVASCULAR: S1 and S2 present. No murmurs, rubs, or gallops. PULMONARY: Chest is clear to auscultation, no wheezing or crackles. ABDOMEN: Soft, nontender, nondistended, normoactive bowel sounds. No palpable organomegaly. MUSCULOSKELETAL: No joint swelling or deformity. EXTREMITIES: No cyanosis, clubbing, or pedal edema. NEUROLOGICAL: Gross neurological examination did not reveal any focal deficits. SKIN: No rashes. - Labs CBC & Chem 7: 04/14/22 05:33 04/14/22 05:33 Labs: Abnormal Lab Results - Last 24 Hours (Table) 04/13/22 04/13/22 04/13/22 Range/Units 11:50 11:50 11:50 RBC (4.10-5.20) X 10*6/uL Hgb (12.0-15.0) g/dL Hct (37.2-46.3) % MCHC (32.0-37.0) g/dL APTT 20.1 L (22.0-30.0) sec Sodium 136 L (137-145) mmol/L Anion Gap (10.00-18.00) mmol/L BUN 25 H (7-17) mg/dL Creatinine 1.25 H (0.52-1.04) mg/dL BUN/Creatinine Ratio (12.00-20.00) Ratio Glucose 209 H (74-99) mg/dL POC Glucose (mg/dL) (70-110) mg/dL Plasma Lactic Acid Agustín 2.5 H* (0.7-2.0) mmol/L Calcium (8.7-10.3) mg/dL AST 51 H (14-36) U/L ALT 40 H (4-34) U/L Alkaline Phosphatase 154 H (38-126) U/L Urine Appearance (Clear) Urine Protein (Negative) Urine Ketones (Negative) Urine Blood (Negative) Urine Bilirubin (Negative) Ur Leukocyte Esterase (Negative) Urine RBC (0-5) /hpf Urine WBC (0-5) /hpf Urine WBC Clumps (None) /hpf Urine Bacteria (None) /hpf Hyaline Casts (0-2) /lpf Urine Mucus (None) /hpf 04/13/22 04/13/22 04/13/22 Range/Units 14:18 16:37 20:14 RBC (4.10-5.20) X 10*6/uL Hgb (12.0-15.0) g/dL Hct (37.2-46.3) % MCHC (32.0-37.0) g/dL APTT (22.0-30.0) sec Sodium (137-145) mmol/L Anion Gap (10.00-18.00) mmol/L BUN (7-17) mg/dL Creatinine (0.52-1.04) mg/dL BUN/Creatinine Ratio (12.00-20.00) Ratio Glucose (74-99) mg/dL POC Glucose (mg/dL) 145 H 126 H (70-110) mg/dL Plasma Lactic Acid Agustín (0.7-2.0) mmol/L Calcium (8.7-10.3) mg/dL AST (14-36) U/L ALT (4-34) U/L Alkaline Phosphatase (38-126) U/L Urine Appearance Turbid H (Clear) Urine Protein 2+ H (Negative) Urine Ketones 1+ H (Negative) Urine Blood Small H (Negative) Urine Bilirubin 1+ H (Negative) Ur Leukocyte Esterase Large H (Negative) Urine RBC 6 H (0-5) /hpf Urine WBC >182 H (0-5) /hpf Urine WBC Clumps Many H (None) /hpf Urine Bacteria Few H (None) /hpf Hyaline Casts 47 H (0-2) /lpf Urine Mucus Many H (None) /hpf 04/14/22 04/14/22 04/14/22 Range/Units 05:33 05:33 11:41 RBC 3.94 L (4.10-5.20) X 10*6/uL Hgb 10.9 L (12.0-15.0) g/dL Hct 34.8 L (37.2-46.3) % MCHC 31.3 L (32.0-37.0) g/dL APTT (22.0-30.0) sec Sodium (137-145) mmol/L Anion Gap 9.50 L (10.00-18.00) mmol/L BUN (7-17) mg/dL Creatinine (0.52-1.04) mg/dL BUN/Creatinine Ratio 21.57 H (12.00-20.00) Ratio Glucose (74-99) mg/dL POC Glucose (mg/dL) 129 H (70-110) mg/dL Plasma Lactic Acid Agustín (0.7-2.0) mmol/L Calcium 8.3 L (8.7-10.3) mg/dL AST (14-36) U/L ALT (4-34) U/L Alkaline Phosphatase (38-126) U/L Urine Appearance (Clear) Urine Protein (Negative) Urine Ketones (Negative) Urine Blood (Negative) Urine Bilirubin (Negative) Ur Leukocyte Esterase (Negative) Urine RBC (0-5) /hpf Urine WBC (0-5) /hpf Urine WBC Clumps (None) /hpf Urine Bacteria (None) /hpf Hyaline Casts (0-2) /lpf Urine Mucus (None) /hpf Microbiology - Last 24 Hours (Table) 04/13/22 14:18 Urine Culture - Preliminary Urine,Voided Assessment and Plan Assessment: 1. Intractable nausea vomiting and diarrhea; possible acute gastroenteritis 2. Hypotension; likely hypovolemia related to vomiting and diarrhea 3. Acute renal injury; patient has an elevated B UN/creatinine of 25/1.25 which is above baseline; likely related to dehydration and hypovolemia; patient is placed on IV fluids in form of normal saline at rate of 75 mL an hour; we'll monitor strict LATESHA's and renal function; avoid nephrotoxins and hypotension 4. Transaminitis; likely multifactorial related to intractable vomiting and hypotension; we will monitor liver enzymes closely with plans for further workup if liver enzymes continue to trend up 5. Hypertension; we will hold antihypertensive therapy until blood pressure stable 6. Diabetes mellitus 2; monitor Accu-Cheks before meals and at bedtime with insulin sliding scale; metformin 500 mg daily at bedtime 7. Depression; continue with home dose of Zoloft 100 mg daily at bedtime and Wellbutrin SR 150 mg twice a day DVT prophylaxis; SCDs/subcu heparin CODE STATUS; full code
[2022-04-14 18:29] LABS: Glucose,Whole Blood 100 mg/dL (70-110)
[2022-04-14] MEDS ORDERED: ONDANSETRON 4 MG/2 ML VIAL IVP PRN (18:33)
[2022-04-14 21:47] LABS: Glucose,Whole Blood 130 mg/dL (70-110)
[2022-04-15] MEDS: SODIUM CHLORIDE 0.9% 1,000 ML IV SCH (04:53)
[2022-04-15 07:04] LABS: Glucose,Whole Blood 106 mg/dL (70-110)
[2022-04-15] MEDS: buPROPion SR 150 MG TABLET.ER PO SCH (08:15)
[2022-04-15] MEDS: metFORMIN 500 MG TAB PO SCH (08:15)
[2022-04-15] MEDS: ETODOLAC 400 MG TAB PO SCH (08:15)
[2022-04-15] MEDS: FERROUS SULFATE 325 MG TAB PO SCH (08:15)
[2022-04-15] MEDS: ACETAMINOPHEN TAB 325 MG TAB PO PRN (08:15)
[2022-04-15] MEDS: LORATADINE 10 MG TAB PO SCH (08:16)
[2022-04-15 08:38] VITALS: BP 117/75; PULSE 78; RESP 16; TEMP 100.9
[2022-04-15 12:02] LABS: Glucose,Whole Blood 118 mg/dL (70-110)
--- NOTE | 2022-04-15 13:46 | P.DS ---
Providers Date of admission: 04/13/22 14:01 Expected date of discharge: 04/15/22 Attending physician: Alfonso Rock MD Primary care physician: Kristin Rock [facility] Course: Final Diagnoses: Acute UTI, Acute renal failure, resolved Dehydration, resolved Hypotension, suspect hypovolemia secondary to nausea vomiting or diarrhea, resolved Transaminitis This is a 67-year-old female admitted with acute UTI, acute renal failure, dehydration, nausea, vomiting, diarrhea, hypotension and multiple other medical issues. Treated with IV fluid hydration, IV antibiotics of ceftriaxone with significant clinical improvement .Denies chest pain, palpitations or shortness of breath. Denies lightheadedness dizziness or focal deficits. Patient will be discharged home today in a stable condition with guarded prognosis. The impression and plan of care has been dictated as directed. : I performed a history and examination of this patient, discussed the same with the dictator. I agree with the dictator's note ,documented as a scribe. Any additional findings or plans will be noted. Patient Condition at Discharge: Stable Plan - Discharge Summary New Discharge Prescriptions: New Amoxic-Pot Clav 875-125Mg [Augmentin 875-125] 1 tab PO BID 5 Days #10 tab No Action lisinopriL [Zestril] 10 mg PO DAILY Sertraline [Zoloft] 100 mg PO HS buPROPion HCL [Wellbutrin SR] 150 mg PO BID Diclofenac Sodium [Voltaren] 75 mg PO BID Cetirizine HCl [Zyrtec] 10 mg PO DAILY metFORMIN HCL [Glucophage Xr] 500 mg PO HS Ferrous Sulfate [Feosol] 325 mg PO DAILY Ergocalciferol [Vitamin D2 (1250 Mcg = 35946 Iu)] 1,250 mcg PO SA traMADol HCL 50 mg PO TID PRN PRN Reason: Pain Supartz Fx 25/2.5ml Injection 25 mg INTRAARTIC TH Discharge Medication List lisinopriL [Zestril] 10 mg PO DAILY 04/04/17 [History] Cetirizine HCl [Zyrtec] 10 mg PO DAILY 07/01/19 [History] Diclofenac Sodium [Voltaren] 75 mg PO BID 07/01/19 [History] Sertraline [Zoloft] 100 mg PO HS 07/01/19 [History] buPROPion HCL [Wellbutrin SR] 150 mg PO BID 07/01/19 [History] metFORMIN HCL [Glucophage Xr] 500 mg PO HS 10/19/19 [History] Ergocalciferol [Vitamin D2 (1250 Mcg = 91475 Iu)] 1,250 mcg PO SA 04/13/22 [History] Ferrous Sulfate [Feosol] 325 mg PO DAILY 04/13/22 [History] Supartz Fx 25/2.5ml Injection 25 mg INTRAARTIC TH 04/13/22 [History] traMADol HCL 50 mg PO TID PRN 04/13/22 [History] Amoxic-Pot Clav 875-125Mg [Augmentin 875-125] 1 tab PO BID 5 Days #10 tab 04/15/22 [Rx] Follow up Appointment(s)/Referral(s): Kristin Rock DO [Primary Care Provider] - 04/17/22 12:00 pm (Appointment at [place] office. [address] [place] [address] 04/17/22 12:00pm) Patient Instructions/Handouts: Dehydration (DC), Hypotension (DC) Discharge/Stand Alone Forms: Work/School Release
== END 2022-04-15 13:39 | disposition home or self-care (01) ==
LOC: EC 11:11 → INTOOBSV 14:01 → 4SSUR 14:01 → UNDODISIN 04-15 13:39
PROVIDERS: ADMIT Family Medicine; ATTEND Family Medicine
DX: N39.0 Urinary tract infection, site not specified (principal); N17.9 Acute kidney failure, unspecified; E86.1 Hypovolemia; E86.0 Dehydration; I95.9 Hypotension, unspecified; I10 Essential (primary) hypertension; E11.9 Type 2 diabetes mellitus without complications; R74.01 Elevation of levels of liver transaminase levels; F32.A Depression, unspecified; Z20.822 Contact with and (suspected) exposure to COVID-19; Z79.84 Long term (current) use of oral hypoglycemic drugs; Z79.899 Other long term (current) drug therapy; Z98.84 Bariatric surgery status; Z98.891 History of uterine scar from previous surgery; Z90.710 Acquired absence of both cervix and uterus; Z87.19 Personal history of other diseases of the digestive system; Z82.49 Family history of ischemic heart disease and other diseases of the circulatory system
CPT/HCPCS: 96361 ×2; 96365; 96375; 99285; 36415; 93005; 80053; 80048; 83605; 83735; 84484; 85025 ×2; 85610; 85730; 81001; 87086; 87077; 87186; 87635; 71045; G0378 ×3; S0106 ×3; J2405; J0696 ×2; 96360

== ENCOUNTER → 2023-06-24 | Outpatient (CLI) | payer MEDICARE ==
--- NOTE | 2023-06-24 12:51 | NM ---
EXAMINATION TYPE: NM stress lexiscan cardiolite DATE OF EXAM: 06/24/2023 COMPARISON: NONE CLINICAL INDICATION: Female, 68 years old with history of R07.89 OTHER CHEST PAIN; TECHNIQUE: After the intravenous administration of 10.3 mCi Tc 99m Sestamibi - Cardiolite resting SP ECT images acquired 70 minutes post injection. The patient received 0.4mg Lexiscan, 25.7 mCi Tc 99m Sestamibi - Stress images obtained [address] injection FINDINGS: Review of stress and rest SPECT images demonstrates no distinct perfusion abnormality. Gated analysi s shows normal wall motion with an estimated left ventricular ejection fraction of 67 %. IMPRESSION: No scintigraphic evidence for reversible ischemia.
--- NOTE | 2023-06-24 13:08 | CA ---
Exercise Stress Test Report Name: Machelle Serrano Exam Date: 06/24/2023 09:26 Exam Location: [facility] Ht (in): 67 Wt (lb): 175 BSA: 1.91 Ordering Phys: Kristin Rock DO Referring Phys: kristin barraza,, Technologist: Jefry Carpenter Age: 68 Gender: F : 1955 Procedure CPT: Indications: R07.89 other chest pain ICD-10 Codes: Patient History: HTN, DM, ASTHMA Medications: ZOLOFT, WELBUTRIN, DICLOFENAC Meds past 24 hrs: Pretest Chest Pain: STRESS TEST Protocol Exercise Duration (min:sec): 02:[address] Depressions (mm): Angina Score: Robles Score: Resting HR (bpm): 71 Peak HR (bpm): 111 Resting BP (mmHg): 151 / 76 Peak BP (mmHg): 131 / 81 MPHR: 154 Target HR: 131 % MPHR: 72 METS: 1.0 Total Dose: Peak Dose: Atropine: Double Product: 14617 BP Response: Stress Termination: END OF DOSAGE Stress Symptoms: Stress Summary: ECG ANALYSIS Resting ECG: Sinus rhythm. Normal conduction. No arrhythmias. Nonspecific ST-T abnormality. Stress ECG: No ECG changes from baseline with Lexiscan infusion. CONCLUSIONS No ECG evidence of ischemia with Lexiscan infusion. Nuclear test results to follow. Dr. Stanley Edwards MD (Electronically Signed) Final Date: 24 June 2023 13:08
== END | disposition home or self-care (01) ==
LOC: RADNMMAIN 07:27
PROVIDERS: ATTEND Family Medicine
DX: R07.89 Other chest pain (principal); R55 Syncope and collapse
CPT/HCPCS: 93017; 78452; A9500

== ENCOUNTER → 2025-01-03 | Outpatient (CLI) | payer MEDICARE ==
--- NOTE | 2025-01-03 14:20 | MM ---
Reason for Exam: Screening (asymptomatic). Last mammogram was performed 3 year(s) and 1 month(s) ago. Patient History: Menarche at age 14. First Full-Term at age 24. Left ovary removed at age 48. Right ovary removed at age 48. Hysterectomy at age 48. Postmenopausal. 2005, Bilateral Reduction. Risk Values: Alejandrina 5 year model risk: 1.5%. NCI Lifetime model risk: 5.2%. Prior Study Comparison: 06/21/2013 Screening Mammogram, [facility] . 12/31/2017 Bilateral Screening Mammogram, [facility]. 12/04/2021 Bilateral Screening Mammogram, [facility]. 12/07/2021 Left Diagnostic Mammogram, [facility]. Tissue Density: There are scattered areas of fibroglandular density. Findings: Analyzed By CAD. Benign-appearing vascular calcifications bilaterally. Redemonstrated. Group of Dystrophic calcifications in the posterior left breast are redemonstrated. There is no suspicious new group of microcalcifications or new suspicious mass in either breast. Overall Assessment: Benign, BI-RAD 2 Management: Screening Mammogram of both breasts in 1 year. . Patient should continue monthly self-breast exams. A clinical breast exam by your physician is recommended on an annual basis. This exam should not preclude additional follow-up of suspicious palpable abnormalities. Note on Alejandrina scores and lifetime risk: 1. A Alejandrina score greater than 3% is considered moderate risk. If this is the case, consider specialist referral to assess eligibility for a risk reducing agent. 2. If overall lifetime risk for the development of breast cancer is 20% or higher, the patient may qualify for future screening with alternating mammogram and breast MRI. [facility], , 01/03/2025 2:17 PM. Electronically signed and approved by: John Mccauley M.D.
== END | disposition home or self-care (01) ==
LOC: RADMAMWWP 12:41
PROVIDERS: ATTEND Family Medicine
DX: Z12.31 Encounter for screening mammogram for malignant neoplasm of breast (principal); R92.323 Mammographic fibroglandular density, bilateral breasts; R92.1 Mammographic calcification found on diagnostic imaging of breast; Z78.0 Asymptomatic menopausal state
CPT/HCPCS: 77067